=== PATIENT | male | born 1970 | race African-American/Black ===

== ENCOUNTER 2021-02-19 13:34 | Inpatient (IN) | payer SELFPAY ==
[2021-02-19] VITALS (10 sets, daily range): BP systolic 111–156; BP diastolic 75–113
[~2021-02-19] VITALS: Ht 170.2 cm; Wt 138.0 kg
[2021-02-19] MEDS ORDERED: CEFEPIME 2 GM in SODIUM CHLORIDE 0.9% 100 ML IV ONE (14:00)
[2021-02-19] MEDS ORDERED: NITROGLYCERIN 2% OINT 1 GM PKT TOP ONE (14:00)
[2021-02-19 14:19] LABS: BASOPHILS # (AUTO) 0.1 (0.0-0.1); BASOPHILS % 0.3 % (0.0-1.0); EOSINOPHILS # (AUTO) 0.1 (0.0-0.4); EOSINOPHILS % 0.5 % (0.0-6.0); HEMATOCRIT 38.5 % (38.2-49.6); HEMOGLOBIN 11.9 g/dL (14.0-18.0); LYMPHOCYTES # (AUTO) 1.6 (1.0-3.2); LYMPHOCYTES % 9.3 % (18.0-39.1); MEAN CORPUSCULAR HEMOGLOBIN 26.6 pg (28-32); MEAN CORPUSCULAR HGB CONC 30.9 g/dL (31-35); MEAN CORPUSCULAR VOLUME 85.9 fL (81-99); MONOCYTES # (AUTO) 1.3 (0.2-0.8); MONOCYTES % 7.6 % (4.4-11.3); NEUTROPHILS # (AUTO) 14.1 (2.1-6.9); NEUTROPHILS % 81.7 % (38.7-80.0); PLATELET COUNT 289 x10e3/uL (140-360); RED BLOOD COUNT 4.48 x10e6/uL (4.3-5.7); RED CELL DISTRIBUTION WIDTH 14.6 % (11.7-14.4)
[2021-02-19 14:30] LABS: INR 1.18
[2021-02-19 14:31] LABS: PARTIAL THROMBOPLASTIN TIME 29.7 seconds (23.8-35.5)
[2021-02-19 14:39] LABS: ALBUMIN 3.2 g/dL (3.5-5.0); ALBUMIN/GLOBULIN RATIO 0.8 (0.8-2.0); ANION GAP 16.4 mmol/L (8-16); CALCIUM 9.1 mg/dL (8.4-10.2); CREATININE, SERUM 1.3 mg/dL (0.72-1.25); POTASSIUM 4.4 mmol/L (3.5-5.1)
[2021-02-19 14:46] LABS: B-TYPE NATRIURETIC PEPTIDE2 438.2 pg/mL (0-100); CREATINE KINASE MB 1.9 ng/mL (0-5.0)
[2021-02-19] MEDS ORDERED: FUROSEMIDE INJ 10 MG/ML 4 ML VIAL IV NR (15:30)
[2021-02-19 17:09] LABS: CLARITY,URINE CLEAR (CLEAR); COLOR,URINE YELLOW (YELLOW)
[2021-02-19 17:10] LABS: KETONES,URINE NEGATIVE (NEGATIVE); LEUKOCYTE ESTERASE ,URINE NEGATIVE (NEGATIVE); NITRITE,URINE NEGATIVE (NEGATIVE); PROTEIN,URINE DIPSTICK 2+ (NEGATIVE); URINE UROBILINOGEN 1 mg/dL (0.2 - 1)
[2021-02-19 17:21] LABS: BACTERIA,URINE RARE /HPF; EPITHELIAL CELLS,URINE FEW /LPF; RBC,URINE 0-5 /HPF (0-5)
[2021-02-19] MEDS ORDERED: FUROSEMIDE40 MG PO (17:55)
[2021-02-19] MEDS ORDERED: SPIRONOLACTONE25 MG PO (17:57)
[2021-02-19] MEDS ORDERED: DIOVAN80 MG PO (17:58)
[2021-02-19] MEDS ORDERED: CLONIDINE HCL 0.2 MG TAB PO PRN (18:15)
[2021-02-19] MEDS: NITROGLYCERIN 2% OINT 1 GM PKT TOP SCH (19:12)
[2021-02-19] MEDS: VALSARTAN 80 MG TAB PO SCH (21:45)
[2021-02-19] MEDS: CEFEPIME 2 GM in SODIUM CHLORIDE 0.9% 100 ML IV SCH (22:53)
[2021-02-19] MEDS ORDERED: IOPAMIDOL 370 MG/ML 200 ML INFUS..BTL INJ ONE (23:02)
[2021-02-19] MEDS ORDERED: SODIUM CHLORIDE 0.9% 50ML 50 ML ONE (23:02)
[2021-02-20] VITALS (26 sets, daily range): BP systolic 92–174; BP diastolic 50–125
[2021-02-20] MEDS: NITROGLYCERIN 2% OINT 1 GM PKT TOP SCH (00:35)
[2021-02-20] MEDS ORDERED: LORAZEPAM INJ 2 MG/ML VIAL ONE (00:54)
[2021-02-20] MEDS: LORAZEPAM INJ 2 MG/ML VIAL IV PRN (00:55)
[2021-02-20] MEDS ORDERED: ALBUTEROL/IPRATROPIUM 3 ML NEB NEB PRN (01:15)
[2021-02-20] MEDS ORDERED: DIPHENHYDRAMINE HCL 25 MG CAP PO PRN (01:15)
[2021-02-20] MEDS ORDERED: POTASSIUM CHLORIDE 20 MEQ TAB CR PO PRN (01:15)
[2021-02-20] MEDS ORDERED: LIDOCAINE 4% PATCH TP PRN (01:15)
[2021-02-20] MEDS ORDERED: SIMETHICONE 80 MG CHEW PO PRN (01:15)
[2021-02-20] MEDS ORDERED: TRAMADOL HCL 50 MG TAB PO PRN (01:15)
[2021-02-20] MEDS ORDERED: ONDANSETRON HCL INJ 2MG/ML 2ML 2 MG/ML VIAL IV PRN (01:15)
[2021-02-20] MEDS ORDERED: DOCUSATE SODIUM 100 MG CAP PO PRN (01:15)
[2021-02-20] MEDS ORDERED: HYDRALAZINE HCL 20 MG/ML VIAL IV PRN (01:15)
[2021-02-20] MEDS ORDERED: DEXTROSE 50% SYRINGE 50 ML IV PRN (01:15)
[2021-02-20] MEDS ORDERED: MELATONIN 5 MG TABLET PO PRN (01:15)
[2021-02-20] MEDS: CEFEPIME 2 GM in SODIUM CHLORIDE 0.9% 100 ML IV SCH ×3 (06:00→21:39)
[2021-02-20 06:49] LABS: BASOPHILS # (AUTO) 0.1 (0.0-0.1); BASOPHILS % 0.3 % (0.0-1.0); EOSINOPHILS % 0.1 % (0.0-6.0); HEMOGLOBIN 11.6 g/dL (14.0-18.0); LYMPHOCYTES # (AUTO) 1.4 (1.0-3.2); LYMPHOCYTES % 7.7 % (18.0-39.1); MEAN CORPUSCULAR HEMOGLOBIN 26.2 pg (28-32); MEAN CORPUSCULAR HGB CONC 30.5 g/dL (31-35); MONOCYTES # (AUTO) 1.5 (0.2-0.8); MONOCYTES % 8.1 % (4.4-11.3); NEUTROPHILS # (AUTO) 15.3 (2.1-6.9); NEUTROPHILS % 83.4 % (38.7-80.0); PLATELET COUNT 277 x10e3/uL (140-360); RED BLOOD COUNT 4.42 x10e6/uL (4.3-5.7); RED CELL DISTRIBUTION WIDTH 14.5 % (11.7-14.4)
[2021-02-20 07:15] LABS: ALBUMIN/GLOBULIN RATIO 0.7 (0.8-2.0); ANION GAP 18.1 mmol/L (8-16); CALCIUM 8.7 mg/dL (8.4-10.2); CREATININE, SERUM 1.29 mg/dL (0.72-1.25); POTASSIUM 4.1 mmol/L (3.5-5.1)
[2021-02-20 07:21] LABS: CREATINE KINASE MB 1.9 ng/mL (0-5.0)
[2021-02-20] MEDS: PANTOPRAZOLE SOD 40 MG TABEC PO SCH (08:18)
[2021-02-20] MEDS ORDERED: FUROSEMIDE INJ 10 MG/ML 4 ML VIAL IV SCH (09:00)
[2021-02-20] MEDS: VALSARTAN 80 MG TAB PO SCH ×2 (09:47→21:39)
[2021-02-20] MEDS: BENZONATATE 100 MG CAP PO PRN ×2 (12:11→19:05)
[2021-02-20 12:19] LABS: CREATINE KINASE MB 3.5 ng/mL (0-5.0)
[2021-02-20] MEDS: CARVEDILOL 3.125 MG TAB PO SCH ×2 (13:46→17:00)
[2021-02-20] MEDS: FUROSEMIDE INJ 100 MG in SODIUM CHLORIDE 0.9% 100 ML 90 ML IV SCH (15:22)
[2021-02-20] MEDS: ENOXAPARIN SOD INJ 40 MG/0.4 ML SYR SC SCH (17:05)
[2021-02-20] MEDS: ZOLPIDEM TARTRATE 5 MG TAB PO PRN (23:08)
[2021-02-20] MEDS: ACETAMINOPHEN 325 MG TAB PO PRN (23:09)
[2021-02-21] VITALS (25 sets, daily range): BP systolic 90–133; BP diastolic 56–109
[2021-02-21] MEDS: FUROSEMIDE INJ 100 MG in SODIUM CHLORIDE 0.9% 100 ML 90 ML IV SCH ×3 (00:40→21:59)
[2021-02-21 05:12] LABS: HEMATOCRIT 34.9 % (38.2-49.6); HEMOGLOBIN 11.1 g/dL (14.0-18.0); MEAN CORPUSCULAR HEMOGLOBIN 26.7 pg (28-32); MEAN CORPUSCULAR HGB CONC 31.8 g/dL (31-35); MEAN CORPUSCULAR VOLUME 84.1 fL (81-99); RED BLOOD COUNT 4.15 x10e6/uL (4.3-5.7)
[2021-02-21 05:13] LABS: BASOPHILS % 0.2 % (0.0-1.0); EOSINOPHILS # (AUTO) 0.2 (0.0-0.4); EOSINOPHILS % 1.3 % (0.0-6.0); LYMPHOCYTES % 11.9 % (18.0-39.1); MONOCYTES # (AUTO) 1.7 (0.2-0.8); MONOCYTES % 9.9 % (4.4-11.3); NEUTROPHILS # (AUTO) 12.7 (2.1-6.9); NEUTROPHILS % 76.1 % (38.7-80.0); PLATELET COUNT 253 x10e3/uL (140-360); RED CELL DISTRIBUTION WIDTH 14.3 % (11.7-14.4)
[2021-02-21 05:46] LABS: ANION GAP 17.8 mmol/L (8-16); CALCIUM 8.8 mg/dL (8.4-10.2); CREATININE, SERUM 1.23 mg/dL (0.72-1.25); MAGNESIUM 2.2 MG/DL (1.3-2.1); POTASSIUM 3.8 mmol/L (3.5-5.1)
[2021-02-21] MEDS: CEFEPIME 2 GM in SODIUM CHLORIDE 0.9% 100 ML IV SCH ×4 (06:00→21:42)
[2021-02-21 06:49] LABS: CREATINE KINASE MB 2.1 ng/mL (0-5.0)
[2021-02-21] MEDS: PANTOPRAZOLE SOD 40 MG TABEC PO SCH (07:30)
[2021-02-21] MEDS: ACETAMINOPHEN 325 MG TAB PO PRN (07:31)
[2021-02-21] MEDS: VALSARTAN 80 MG TAB PO SCH ×2 (09:13→21:42)
[2021-02-21] MEDS: CARVEDILOL 3.125 MG TAB PO SCH ×2 (09:13→17:21)
[2021-02-21] MEDS: ENOXAPARIN SOD INJ 40 MG/0.4 ML SYR SC SCH (17:21)
[2021-02-21] MEDS: ZOLPIDEM TARTRATE 5 MG TAB PO PRN (21:42)
[2021-02-21] MEDS: BENZONATATE 100 MG CAP PO PRN (21:42)
[2021-02-22] VITALS (15 sets, daily range): BP systolic 96–121; BP diastolic 59–89
[2021-02-22] MEDS: LEVALBUTEROL HCL SOLN NEBU 0.63 MG/3 ML NEB INH PRN (02:45)
[2021-02-22] MEDS: LORAZEPAM INJ 2 MG/ML VIAL IV PRN (05:15)
[2021-02-22 05:48] LABS: BASOPHILS % 0.2 % (0.0-1.0); EOSINOPHILS # (AUTO) 0.1 (0.0-0.4); EOSINOPHILS % 0.8 % (0.0-6.0); HEMATOCRIT 35.5 % (38.2-49.6); HEMOGLOBIN 11.1 g/dL (14.0-18.0); LYMPHOCYTES # (AUTO) 1.5 (1.0-3.2); LYMPHOCYTES % 8.7 % (18.0-39.1); MEAN CORPUSCULAR HEMOGLOBIN 26.9 pg (28-32); MEAN CORPUSCULAR HGB CONC 31.3 g/dL (31-35); MEAN CORPUSCULAR VOLUME 86.2 fL (81-99); MONOCYTES # (AUTO) 1.3 (0.2-0.8); MONOCYTES % 7.5 % (4.4-11.3); NEUTROPHILS # (AUTO) 14.6 (2.1-6.9); NEUTROPHILS % 82.3 % (38.7-80.0); PLATELET COUNT 291 x10e3/uL (140-360); RED BLOOD COUNT 4.12 x10e6/uL (4.3-5.7); RED CELL DISTRIBUTION WIDTH 14.2 % (11.7-14.4)
[2021-02-22] MEDS: CEFEPIME 2 GM in SODIUM CHLORIDE 0.9% 100 ML IV SCH ×3 (06:00→21:15)
[2021-02-22 06:14] LABS: ALBUMIN 2.6 g/dL (3.5-5.0); ALBUMIN/GLOBULIN RATIO 0.6 (0.8-2.0); ANION GAP 19.6 mmol/L (8-16); CALCIUM 8.7 mg/dL (8.4-10.2); CREATININE, SERUM 1.46 mg/dL (0.72-1.25); POTASSIUM 3.6 mmol/L (3.5-5.1)
[2021-02-22] MEDS ORDERED: MIDAZOLAM HCL 2 MG/2 ML VIAL ONE (07:24)
[2021-02-22] MEDS ORDERED: HEPARIN SOD (PORCINE) 1000 UNIT/ML 30ML ONE (07:24)
[2021-02-22] MEDS ORDERED: VERAPAMIL HCL 2.5 MG/ML 2 ML VIAL ONE (07:24)
[2021-02-22] MEDS ORDERED: FENTANYL CITRATE/PF 100MCG/2 ML INJ ONE (07:24)
[2021-02-22] MEDS ORDERED: SODIUM CHLORIDE 0.9% 1000ML 1,000 ML ONE (07:25)
[2021-02-22] MEDS ORDERED: IOPAMIDOL 370 MG/ML 200 ML INFUS..BTL INJ ONE (07:25)
[2021-02-22] MEDS ORDERED: LIDOCAINE HCL 2% LOCAL 20 ML VIAL ONE (07:25)
[2021-02-22] MEDS ORDERED: HEPARIN SOD/SOD CHLORIDE 2,000 ML ONE (07:25)
[2021-02-22] MEDS ORDERED: NITROGLYCERIN/D5W 200 MCG/ML 250 ML ONE (07:25)
[2021-02-22] MEDS: PANTOPRAZOLE SOD 40 MG TABEC PO SCH (07:27)
[2021-02-22] MEDS: FUROSEMIDE INJ 100 MG in SODIUM CHLORIDE 0.9% 100 ML 90 ML IV SCH (09:01)
[2021-02-22] MEDS: CARVEDILOL 3.125 MG TAB PO SCH ×2 (09:07→17:00)
[2021-02-22] MEDS: VALSARTAN 80 MG TAB PO SCH ×2 (09:08→18:24)
[2021-02-22] MEDS: ENOXAPARIN SOD INJ 40 MG/0.4 ML SYR SC SCH (18:24)
[2021-02-23] VITALS (8 sets, daily range): BP systolic 112–175; BP diastolic 67–160
[2021-02-23] MEDS: LORAZEPAM INJ 2 MG/ML VIAL IV PRN (00:45)
[2021-02-23] MEDS: BENZONATATE 100 MG CAP PO PRN (01:00)
[2021-02-23] MEDS: LEVALBUTEROL HCL SOLN NEBU 0.63 MG/3 ML NEB INH PRN (01:35)
[2021-02-23] MEDS: GUAIFENESIN/CODEINE 5 ML LIQD PO PRN ×2 (04:30→14:10)
[2021-02-23] MEDS: CEFEPIME 2 GM in SODIUM CHLORIDE 0.9% 100 ML IV SCH ×3 (05:00→21:20)
[2021-02-23 06:06] LABS: BASOPHILS % 0.3 % (0.0-1.0); EOSINOPHILS # (AUTO) 0.2 (0.0-0.4); EOSINOPHILS % 2.1 % (0.0-6.0); HEMATOCRIT 33.9 % (38.2-49.6); HEMOGLOBIN 10.7 g/dL (14.0-18.0); LYMPHOCYTES # (AUTO) 1.2 (1.0-3.2); LYMPHOCYTES % 10.7 % (18.0-39.1); MEAN CORPUSCULAR HEMOGLOBIN 26.7 pg (28-32); MEAN CORPUSCULAR HGB CONC 31.6 g/dL (31-35); MEAN CORPUSCULAR VOLUME 84.5 fL (81-99); MONOCYTES # (AUTO) 0.8 (0.2-0.8); MONOCYTES % 7.2 % (4.4-11.3); NEUTROPHILS # (AUTO) 8.8 (2.1-6.9); NEUTROPHILS % 79.2 % (38.7-80.0); PLATELET COUNT 259 x10e3/uL (140-360); RED BLOOD COUNT 4.01 x10e6/uL (4.3-5.7)
[2021-02-23 06:30] LABS: ALBUMIN 2.4 g/dL (3.5-5.0); ALBUMIN/GLOBULIN RATIO 0.6 (0.8-2.0); ANION GAP 16.6 mmol/L (8-16); CALCIUM 8.7 mg/dL (8.4-10.2); CREATININE, SERUM 1.09 mg/dL (0.72-1.25); POTASSIUM 3.6 mmol/L (3.5-5.1)
[2021-02-23] MEDS: PANTOPRAZOLE SOD 40 MG TABEC PO SCH (07:46)
[2021-02-23] MEDS: VALSARTAN 80 MG TAB PO SCH (08:10)
[2021-02-23] MEDS: FUROSEMIDE INJ 10 MG/ML 4 ML VIAL IV SCH ×2 (08:10→21:20)
[2021-02-23] MEDS: CARVEDILOL 3.125 MG TAB PO SCH ×2 (08:10→17:20)
[2021-02-23] MEDS ORDERED: ONDANSETRON HCL 4 MG ORAL DISINTEGRATING TAB PO PRN (13:45)
[2021-02-23] MEDS: ENOXAPARIN SOD INJ 40 MG/0.4 ML SYR SC SCH (17:19)
[2021-02-23] MEDS: SACUBITRIL/VALSARTAN 1 EACH TABLET PO SCH (21:20)
[2021-02-24] VITALS (8 sets, daily range): BP systolic 103–130; BP diastolic 70–92
[2021-02-24] MEDS: GUAIFENESIN/CODEINE 5 ML LIQD PO PRN ×3 (02:26→22:20)
[2021-02-24] MEDS: CEFEPIME 2 GM in SODIUM CHLORIDE 0.9% 100 ML IV SCH ×3 (05:48→20:56)
[2021-02-24 07:12] LABS: ANION GAP 13.6 mmol/L (8-16); CALCIUM 8.4 mg/dL (8.4-10.2); CREATININE, SERUM 1.04 mg/dL (0.72-1.25); POTASSIUM 3.6 mmol/L (3.5-5.1)
[2021-02-24] MEDS: BENZONATATE 100 MG CAP PO PRN (07:46)
[2021-02-24] MEDS: FUROSEMIDE INJ 10 MG/ML 4 ML VIAL IV SCH ×2 (09:43→21:00)
[2021-02-24] MEDS: SACUBITRIL/VALSARTAN 1 EACH TABLET PO SCH (09:43)
[2021-02-24] MEDS: PANTOPRAZOLE SOD 40 MG TABEC PO SCH (09:43)
[2021-02-24] MEDS: AZITHROMYCIN 250 MG TAB PO SCH (09:44)
[2021-02-24] MEDS: CARVEDILOL 3.125 MG TAB PO SCH ×2 (09:53→16:36)
[2021-02-24] MEDS: LEVALBUTEROL HCL SOLN NEBU 0.63 MG/3 ML NEB INH PRN ×3 (10:00→18:15)
[2021-02-24] MEDS: FINASTERIDE 5 MG TAB PO SCH (14:01)
[2021-02-24] MEDS: VALSARTAN 80 MG TAB PO SCH (20:45)
[2021-02-24] MEDS: TAMSULOSIN HCL 0.4 MG CAP PO SCH (20:45)
[2021-02-25] VITALS (7 sets, daily range): BP systolic 101–140; BP diastolic 58–78
[2021-02-25] MEDS: LEVALBUTEROL HCL SOLN NEBU 0.63 MG/3 ML NEB INH PRN (00:49)
[2021-02-25] MEDS: CEFEPIME 2 GM in SODIUM CHLORIDE 0.9% 100 ML IV SCH ×3 (06:35→21:12)
[2021-02-25] MEDS: FUROSEMIDE INJ 10 MG/ML 4 ML VIAL IV SCH ×2 (09:11→20:17)
[2021-02-25] MEDS: PANTOPRAZOLE SOD 40 MG TABEC PO SCH (09:11)
[2021-02-25] MEDS: AZITHROMYCIN 250 MG TAB PO SCH (09:12)
[2021-02-25] MEDS: CARVEDILOL 3.125 MG TAB PO SCH ×2 (09:12→17:46)
[2021-02-25] MEDS: FINASTERIDE 5 MG TAB PO SCH (09:12)
[2021-02-25] MEDS: VALSARTAN 80 MG TAB PO SCH ×2 (09:12→20:19)
[2021-02-25] MEDS: TAMSULOSIN HCL 0.4 MG CAP PO SCH (20:17)
[2021-02-26] VITALS (7 sets, daily range): BP systolic 102–130; BP diastolic 54–75
[2021-02-26] MEDS: LEVALBUTEROL HCL SOLN NEBU 0.63 MG/3 ML NEB INH PRN (00:11)
[2021-02-26] MEDS: CEFEPIME 2 GM in SODIUM CHLORIDE 0.9% 100 ML IV SCH ×3 (05:07→21:19)
[2021-02-26] MEDS: CARVEDILOL 3.125 MG TAB PO SCH ×2 (09:54→17:14)
[2021-02-26] MEDS: PANTOPRAZOLE SOD 40 MG TABEC PO SCH (09:54)
[2021-02-26] MEDS: FUROSEMIDE INJ 10 MG/ML 4 ML VIAL IV SCH (09:54)
[2021-02-26] MEDS: VALSARTAN 80 MG TAB PO SCH ×2 (09:54→21:19)
[2021-02-26] MEDS: AZITHROMYCIN 250 MG TAB PO SCH (09:55)
[2021-02-26] MEDS: FINASTERIDE 5 MG TAB PO SCH (09:55)
[2021-02-26 14:11] LABS: ANION GAP 15.6 mmol/L (8-16); CALCIUM 8.8 mg/dL (8.4-10.2); CREATININE, SERUM 1.03 mg/dL (0.72-1.25); MAGNESIUM 2.2 MG/DL (1.3-2.1); POTASSIUM 3.6 mmol/L (3.5-5.1)
[2021-02-26 17:24] LABS: HEMOGLOBIN 11.5 g/dL (14.0-18.0)
[2021-02-26] MEDS ORDERED: PHENAZOPYRIDINE HCL 100 MG TAB PO PRN (17:30)
[2021-02-26] MEDS: TAMSULOSIN HCL 0.4 MG CAP PO SCH (21:19)
[2021-02-26] MEDS: PHENAZOPYRIDINE HCL 100 MG TAB PO PRN (23:20)
[2021-02-27] VITALS (7 sets, daily range): BP systolic 101–135; BP diastolic 61–77
[2021-02-27] MEDS: CEFEPIME 2 GM in SODIUM CHLORIDE 0.9% 100 ML IV SCH ×3 (06:25→22:21)
[2021-02-27] MEDS: CARVEDILOL 3.125 MG TAB PO SCH ×2 (08:53→16:40)
[2021-02-27] MEDS: VALSARTAN 80 MG TAB PO SCH ×2 (08:53→21:08)
[2021-02-27] MEDS: FINASTERIDE 5 MG TAB PO SCH (08:53)
[2021-02-27] MEDS: PANTOPRAZOLE SOD 40 MG TABEC PO SCH (08:53)
[2021-02-27] MEDS: AZITHROMYCIN 250 MG TAB PO SCH (08:53)
[2021-02-27] MEDS: PHENAZOPYRIDINE HCL 100 MG TAB PO PRN (08:54)
[2021-02-27] MEDS: FUROSEMIDE INJ 10 MG/ML 4 ML VIAL IV SCH (08:56)
[2021-02-27] MEDS: GUAIFENESIN/CODEINE 5 ML LIQD PO PRN ×2 (11:57→23:32)
[2021-02-27] MEDS: TAMSULOSIN HCL 0.4 MG CAP PO SCH (21:08)
[2021-02-27] MEDS: BENZONATATE 100 MG CAP PO PRN (23:32)
[2021-02-28] VITALS (8 sets, daily range): BP systolic 110–130; BP diastolic 59–98
[2021-02-28] MEDS: CEFEPIME 2 GM in SODIUM CHLORIDE 0.9% 100 ML IV SCH ×3 (05:52→21:30)
[2021-02-28] MEDS: FUROSEMIDE 40 MG TAB PO SCH (08:46)
[2021-02-28] MEDS: FINASTERIDE 5 MG TAB PO SCH (08:46)
[2021-02-28] MEDS: VALSARTAN 80 MG TAB PO SCH ×2 (08:46→21:30)
[2021-02-28] MEDS: AZITHROMYCIN 250 MG TAB PO SCH (08:46)
[2021-02-28] MEDS: PANTOPRAZOLE SOD 40 MG TABEC PO SCH (08:47)
[2021-02-28] MEDS: CARVEDILOL 3.125 MG TAB PO SCH ×2 (08:47→17:21)
[2021-02-28] MEDS: TAMSULOSIN HCL 0.4 MG CAP PO SCH (21:30)
[2021-03-01] VITALS: BP 141/90
[2021-03-01 04:00] VITALS: BP_SYST 114; BP_SYST 91; BP_DIAS 54; BP_DIAS 75
[2021-03-01] MEDS: CEFEPIME 2 GM in SODIUM CHLORIDE 0.9% 100 ML IV SCH ×2 (06:30→13:23)
[2021-03-01 08:18] VITALS: BP 117/70
[2021-03-01] MEDS: PANTOPRAZOLE SOD 40 MG TABEC PO SCH (08:28)
[2021-03-01] MEDS: CARVEDILOL 3.125 MG TAB PO SCH (08:29)
[2021-03-01] MEDS: VALSARTAN 80 MG TAB PO SCH (08:29)
[2021-03-01] MEDS: FINASTERIDE 5 MG TAB PO SCH (08:30)
[2021-03-01] MEDS: FUROSEMIDE 40 MG TAB PO SCH (08:30)
[2021-03-01] MEDS ORDERED: POTASSIUM CHLORIDE 10MEQ EA PO SCH (09:00)
[2021-03-01 09:48] VITALS: BP 117/70
[2021-03-01 09:49] VITALS: BP 117/70
[2021-03-01 11:37] VITALS: BP 116/82
== END 2021-03-01 16:20 | disposition home or self-care (01) | DRG 682 ==
LOC: ER 14:00 → ERHOLD 16:09 → ICU 17:17 → MED/SURG3 02-23 00:04
PROVIDERS: ADMIT Internal Medicine; ATTEND Internal Medicine
PROC: 4A023N7 Measurement of Cardiac Sampling and Pressure, Left Heart, Percutaneous Approach (ICD-10-PCS; principal; 2021-02-22)
PROC: B2111ZZ Fluoroscopy of Multiple Coronary Arteries using Low Osmolar Contrast (ICD-10-PCS; 2021-02-22)
PROC: B2151ZZ Fluoroscopy of Left Heart using Low Osmolar Contrast (ICD-10-PCS; 2021-02-22)
DX: N17.9 Acute kidney failure, unspecified (principal); J18.9 Pneumonia, unspecified organism; I50.23 Acute on chronic systolic (congestive) heart failure; I13.0 Hypertensive heart and chronic kidney disease with heart failure and stage 1 through stage 4 chronic kidney disease, or unspecified chronic kidney disease; Z68.42 Body mass index [BMI] 45.0-49.9, adult; I42.8 Other cardiomyopathies; Z91.19 Patient's noncompliance with other medical treatment and regimen; E66.01 Morbid (severe) obesity due to excess calories; N18.30 Chronic kidney disease, stage 3 unspecified; N40.1 Benign prostatic hyperplasia with lower urinary tract symptoms; R33.8 Other retention of urine; R31.9 Hematuria, unspecified; J45.909 Unspecified asthma, uncomplicated
CPT/HCPCS: 36415; 36569; 71045; 71260; 76937; 80048; 80053; 81001; 82550; 82553; 83605; 83735; 83880; 84484; 85014; 85018; 85025; 85610; 85730; 87040; 87086; 93005; 93306; 93458; 94640; 94799; 97139; 99284; C1887; C1894; J0456; J0692; J1644; J1650; J1940; J2001; J2060; J2250; J3010; J7030; J7050; Q9967; U0002

== ENCOUNTER 2024-02-22 17:30 | Emergency (ER) | payer BC ==
[~2024-02-22] VITALS: Ht 167.6 cm; Wt 139.3 kg
[~2024-02-22 17:30] MED LIST: DIOVAN80 MG PO; FUROSEMIDE40 MG PO; SPIRONOLACTONE25 MG PO
[2024-02-22 18:38] VITALS: TEMP 97.8
[2024-02-22] MEDS ORDERED: SODIUM CHLORIDE FLUSH 10 ML SYR IV PRN (18:45)
[2024-02-22] MEDS: SODIUM CHLORIDE 0.9% 500ML 500 ML IV ONE ×2 (19:28→21:46)
[2024-02-22 19:45] LABS: BASOPHILS # (AUTO) 0.1 (0.0-0.1); BASOPHILS % 0.4 % (0.0-1.0); EOSINOPHILS # (AUTO) 0.1 (0.0-0.4); EOSINOPHILS % 0.8 % (0.0-6.0); HEMATOCRIT 42.7 % (38.2-49.6); HEMOGLOBIN 13.8 g/dL (14.0-18.0); LYMPHOCYTES # (AUTO) 2.5 (1.0-3.2); LYMPHOCYTES % 20.4 % (18.0-39.1); MEAN CORPUSCULAR HEMOGLOBIN 27.3 pg (28-32); MEAN CORPUSCULAR HGB CONC 32.3 g/dL (31-35); MEAN CORPUSCULAR VOLUME 84.6 fL (81-99); MONOCYTES # (AUTO) 1.1 (0.2-0.8); MONOCYTES % 9.2 % (4.4-11.3); NEUTROPHILS # (AUTO) 8.5 (2.1-6.9); NEUTROPHILS % 68.9 % (38.7-80.0); PLATELET COUNT 202 x10e3/uL (140-360); RED BLOOD COUNT 5.05 x10e6/uL (4.3-5.7); RED CELL DISTRIBUTION WIDTH 14.3 % (11.7-14.4); WHITE BLOOD COUNT 12.29 x10e3/uL (4.8-10.8)
[2024-02-22 20:00] LABS: ALBUMIN 3.7 g/dL (3.5-5.0); ANION GAP 16.7 mmol/L (8-16); BILIRUBIN,TOTAL 0.4 mg/dL (0.2-1.2); CALCIUM 9.3 mg/dL (8.4-10.2); CREATININE, SERUM 1.52 mg/dL (0.72-1.25); POTASSIUM 4.7 mmol/L (3.5-5.1); TOTAL PROTEIN 7.3 g/dL (6.5-8.1)
[2024-02-22 20:06] LABS: TROPONIN I 0.142 ng/mL (0-0.300)
[2024-02-22] MEDS ORDERED: IOPAMIDOL 370 MG/ML 100 ML INFUS..BTL INJ ONE (21:40)
[2024-02-22] MEDS: NITROGLYCERIN 2% OINT 1 GM PKT TOP ONE (21:47)
[2024-02-22 23:33] LABS: CORONAVIRUS COVID-19 AG NEGATIVE (NEGATIVE); INFLUENZA A AG NEGATIVE (NEGATIVE); INFLUENZA B AG NEGATIVE (NEGATIVE)
[2024-02-23] VITALS: PULSE 112; RESP 19
[2024-02-23] MEDS: HEPARIN SOD (PORCINE) 5,000 UNIT/ML VIAL IV ONE (00:59)
[2024-02-23] MEDS: HEPARIN SOD/DEXTROSE 5% 25000 UNIT/250 ML BAG IV SCH (01:00)
[2024-02-23 01:42] LABS: INR 1.11
[2024-02-23 01:49] VITALS: BP 139/108; PULSE 116; RESP 18; TEMP 98.6; O2SAT 99
== END 2024-02-23 00:11 | disposition other institution (70) ==
LOC: ER 18:36
DX: R06.02 Shortness of breath (principal); I26.99 Other pulmonary embolism without acute cor pulmonale; I10 Essential (primary) hypertension; I50.9 Heart failure, unspecified; Z11.52 Encounter for screening for COVID-19
CPT/HCPCS: 36415; 71046; 71260; 80053; 83880; 84484; 85025; 85379; 85610; 85730; 87040; 87428; 93005; 94760; 99285; J0456; J0696; J1644; J7040; J7050; Q9967